=== PATIENT | male | born 1970 | race African-American/Black ===

== ENCOUNTER 2024-09-15 19:20 | Emergency (ER) | payer MEDICAID ==
[~2024-09-15] VITALS: Ht 175.3 cm; Wt 77.0 kg
[~2024-09-15 19:20] MED LIST: ALBU6.7H15 INH; AZIT250T12 MT; P50 MT
[2024-09-15 19:30] VITALS: O2SAT 100
[2024-09-15 20:10] VITALS: TEMP 36.8
[2024-09-15] MEDS ORDERED: LIDOCAINE HCL/EPINEPHRINE 1%-EPI 1:100,000 10ML VIAL INFIL ONE (22:30)
[2024-09-15] MEDS: LIDOCAINE HCL/EPINEPHRINE 1%-EPI 1:100,000 20ML VIAL INFIL SCH (22:30)
[2024-09-15] MEDS: TETANUS, DIPHTHERIA, PERTUSSIS VAC/PF 0.5ML (>10YR OLD) IM ONE (22:39)
[2024-09-15 23:07] LABS: BASOPHILS % 0.5 % (0.0-2.0); EOSINOPHILS % 2.4 % (0.0-5.0); HEMATOCRIT. 34.2 % (42.0-52.0); HEMOGLOBIN. 11.4 g/dL (14.0-18.0); MEAN CORPUSCULAR HEMOGLOBIN 30.1 pg (28.0-32.0); MEAN CORPUSCULAR HGB CONC 33.2 g/dL (31.0-37.0); MEAN CORPUSCULAR VOLUME 90.7 fL (80.0-94.0); MEAN PLATELET VOLUME 7.2 fl (7.4-10.4); MONOCYTES % 8.2 % (2.0-8.0); NEUTROPHILS % 60.9 % (40.0-76.0); PLATELET 239 x1000/uL (130-400); RED BLOOD CELL COUNT 3.77 mill/uL (4.7-6.1); RED CELL DISTRIBUTION WIDTH 13.7 % (11.6-14.6); WHITE BLOOD COUNT 6.3 x1000/uL (4.5-11.0)
[2024-09-15 23:16] LABS: CHLORIDE 108 mEq/L (98-107); POTASSIUM 4.1 mEq/L (3.5-5.1); SODIUM 140 mEq/L (136-145)
[2024-09-15 23:17] LABS: CALCIUM 8.9 mg/dL (8.7-10.4); CARBON DIOXIDE 29 mEq/L (21-32)
[2024-09-15 23:22] LABS: CREATININE 1.1 mg/dL (0.6-1.3); GLUCOSE 90 mg/dL (70-105); UREA NITROGEN BLOOD 6 mg/dL (9-23)
[2024-09-15 23:24] LABS: TROPONIN I HIGH SENSITIVITY < 4 ng/L (3.0-53)
[2024-09-16] MEDS ORDERED: BO1 TP (00:35)
[2024-09-16 01:28] VITALS: BP 110/68; PULSE 65; RESP 19; O2SAT 98
== END 2024-09-16 01:40 | disposition home or self-care (01) ==
LOC: ER 19:20
DX: S01.01XA Laceration without foreign body of scalp, initial encounter (principal); S09.90XA Unspecified injury of head, initial encounter; R55 Syncope and collapse; F17.200 Nicotine dependence, unspecified, uncomplicated; F12.90 Cannabis use, unspecified, uncomplicated; W45.8XXA Other foreign body or object entering through skin, initial encounter; Y93.89 Activity, other specified; Y92.89 Other specified places as the place of occurrence of the external cause; Y99.8 Other external cause status
CPT/HCPCS: 80048; 83880; 83735; 85025; 85610; 84484; 36415; 71045; 70450; 90715; 93005; 12001; 90471; 99285; J2004; Z7610 ×3

== ENCOUNTER 2024-09-23 15:04 | Emergency (ER) | payer MEDICAID ==
[~2024-09-23] VITALS: Ht 167.6 cm; Wt 74.0 kg
[~2024-09-23 15:04] MED LIST changes: +BO1 TP
[2024-09-23 15:18] VITALS: O2SAT 98
[2024-09-23 16:36] VITALS: BP 107/60; PULSE 81; RESP 14; TEMP 37.2; O2SAT 100
== END 2024-09-23 16:38 | disposition home or self-care (01) ==
LOC: ER 15:04
DX: S01.01XD Laceration without foreign body of scalp, subsequent encounter (principal); F12.90 Cannabis use, unspecified, uncomplicated; Z79.899 Other long term (current) drug therapy; X58.XXXD Exposure to other specified factors, subsequent encounter
CPT/HCPCS: 99282; Z7610 ×2

== ENCOUNTER 2025-03-21 06:44 | Inpatient (IN) | payer MEDICAID ==
[2025-03-21] VITALS (13 sets, daily range): BP systolic 110–141; BP diastolic 60–119; PULSE 85–99; RESP 16–24; TEMP 36.3–36.4; O2SAT 99–100
[~2025-03-21] VITALS: Ht 167.6 cm; Wt 70.9 kg
[2025-03-21 07:06] LABS: BASOPHILS % 0.9 % (0.0-2.0); EOSINOPHILS % 7.2 % (0.0-5.0); HEMATOCRIT. 39.5 % (42.0-52.0); HEMOGLOBIN. 12.6 g/dL (14.0-18.0); LYMPHOCYTES % 32.2 % (20.0-50.0); MEAN PLATELET VOLUME 7.1 fl (7.4-10.4); MONOCYTES % 5.7 % (2.0-8.0); NEUTROPHILS % 54.0 % (40.0-76.0); PLATELET 350 x1000/uL (130-400); RED BLOOD CELL COUNT 4.48 mill/uL (4.7-6.1); RED CELL DISTRIBUTION WIDTH 15.1 % (11.6-14.6)
[2025-03-21] MEDS: METHYLPREDNISOLONE SOD SUCC 125MG/2ML (ACT-O-VIAL) IV ONE (07:06)
[2025-03-21] MEDS: MAGNESIUM 2 G PREMIX 50 ML IV ONE (07:06)
[2025-03-21 07:16] LABS: CREATININE 0.8 mg/dL (0.6-1.3); UREA NITROGEN BLOOD < 5 mg/dL (9-23)
[2025-03-21 07:39] LABS: TROPONIN I HIGH SENSITIVITY 1841 ng/L (3.0-53)
[2025-03-21] MEDS ORDERED: ENALAPRIL 2.5MG/2ML VIAL 2ML IV ONE (09:00)
[2025-03-21] MEDS: ENALAPRIL 1.25MG/ML VIAL 1ML IV NR (09:10)
[2025-03-21] MEDS: ENOXAPARIN 60MG/0.6ML SYR SUBCUT ONE (09:10)
[2025-03-21] MEDS ORDERED: CLONIDINE 0.1MG TABLET PO PRN (10:15)
[2025-03-21] MEDS ORDERED: METHYLPREDNISOLONE 4MG TABLET PO SCH (10:15)
[2025-03-21] MEDS ORDERED: ACETAMINOPHEN 325MG TABLET PO PRN (10:15)
[2025-03-21] MEDS ORDERED: IPRATROPIUM/ALBUTEROL 0.5-3(2.5)MG/3ML NEB HHN PRN (10:15)
[2025-03-21] MEDS ORDERED: ONDANSETRON HCL 4MG/2ML INJ IV PRN (10:15)
[2025-03-21] MEDS ORDERED: DOCUSATE SODIUM 100MG CAPSULE PO PRN (10:15)
[2025-03-21] MEDS: FERROUS SULFATE 300MG/5ML UDC PO SCH (11:38)
[2025-03-21] MEDS: PANTOPRAZOLE SODIUM 40 MG/VIAL IV SCH (11:38)
[2025-03-21 13:09] LABS: INR 1.0
[2025-03-21 13:41] LABS: HEPATITIS C AB NON REACTIVE (Neg) (Negative)
[2025-03-21] MEDS: METHYLPREDNISOLONE SOD SUCC 125MG/2ML (ACT-O-VIAL) IV SCH (13:42)
[2025-03-21] MEDS ORDERED: GUAIFENESIN 200MG/10ML SUGAR FREE UDC PO PRN (14:00)
[2025-03-21 14:08] LABS: BG BASE EXCESS -0.7 mmol/L (-2.0-3.0); BG CARBOXYHEMOGLOBIN 0.3 % (0.5-1.5); BG DEOXYHEMOGLOBIN 0.5 % (0.0-5.0); BG FRACTION INSPIRED OXYGEN 40; BG HCO3 ACT 25.2 mmol/L (21.0-28.0); BG METHEMOGLOBIN 0.0 % (0.5-1.5); BG OXYGEN SATURATION 99.5 % (94.0-98.0); BG OXYHEMOGLOBIN 99.2 % (94.0-98.0); BG PCO2 46.3 mmHg (35.0-48.0); BG PH 7.353 (7.350-7.450); BG PO2 188.4 mmHg (83.0-108.0); BG SAMPLE SITE RIGHT RADIAL; BG TOTAL HEMOGLOBIN 12.7 g/dL (13.5-17.5); BG VENT MODE MASK - BIPAP; BG VENT RATE 18.0 set
[2025-03-21 14:23] LABS: TROPONIN I HIGH SENSITIVITY 2251 ng/L (3.0-53)
[2025-03-21] MEDS: BUDESONIDE 0.5MG/2ML NEB HHN SCH (14:28)
[2025-03-21] MEDS: IPRATROPIUM/ALBUTEROL 0.5-3(2.5)MG/3ML NEB HHN SCH (14:28)
[2025-03-21] MEDS: ASPIRIN 81MG TABLET PO SCH (15:29)
[2025-03-21] MEDS ORDERED: AZITHROMYCIN 500MG/250ML 250 ML IV SCH (17:00)
[2025-03-21] MEDS ORDERED: DOXYCYCLINE HYCLATE 100 MG/VIAL IV ONE (18:30)
[2025-03-21] MEDS: ENOXAPARIN 80MG/0.8ML SYR SUBCUT SCH (18:41)
[2025-03-21 18:42] LABS: FOLIC ACID (FOLATE) SERUM 11.32 ng/mL (>5.38)
[2025-03-21 18:43] LABS: VITAMIN B12 SERUM 512 pg/mL (211-911)
[2025-03-21 18:48] LABS: TROPONIN I HIGH SENSITIVITY 959 ng/L (3.0-53)
[2025-03-21] MEDS: DOXYCYCLINE 100MG/100ML 100 ML IV SCH (20:25)
[2025-03-22] VITALS (15 sets, daily range): BP systolic 65–131; BP diastolic 37–96; PULSE 73–99; RESP 12–23; TEMP 36.2–36.8; O2SAT 96–100
[2025-03-22 00:57] LABS: TROPONIN I HIGH SENSITIVITY 583 ng/L (3.0-53)
[2025-03-22 03:32] LABS: CLARITY URINE CLEAR (CLEAR); COLOR URINE YELLOW (YELLOW); GLUCOSE URINE NEGATIVE (NEGATIVE); KETONES URINE NEGATIVE (NEGATIVE); LEUKOCYTE ESTERASE URINE NEGATIVE (NEGATIVE); NITRITE URINE NEGATIVE (NEGATIVE); OCCULT BLOOD URINE NEGATIVE (NEGATIVE); PH URINE 6.5 (4.5-8.0); PROTEIN URINE NEGATIVE (NEGATIVE); SPECIFIC GRAVITY URINE 1.009 (1.005-1.030); UROBILINOGEN URINE 0.2 E.U./dL (0.2-1.0)
[2025-03-22 03:52] LABS: *AMPHETAMINES SCREEN URINE NEGATIVE (NEGATIVE)
[2025-03-22 03:53] LABS: *BARBITURATES SCREEN URINE NEGATIVE (NEGATIVE); *BENZODIAZEPINES SCREEN URINE NEGATIVE (NEGATIVE); *COCAINE SCREEN URINE NEGATIVE (NEGATIVE); CANNABINOID URINE SCREEN NEGATIVE (NEGATIVE); ECSTASY MDMA SCREEN URINE NEGATIVE (NEGATIVE); METHADONE URINE SCREEN NEGATIVE (NEGATIVE); OPIATES URINE SCREEN NEGATIVE (NEGATIVE); PHENCYCLIDINE URINE SCREEN NEGATIVE (NEGATIVE)
[2025-03-22 07:18] LABS: BASOPHILS % 0.1 % (0.0-2.0); EOSINOPHILS % 0.2 % (0.0-5.0); HEMATOCRIT. 34.9 % (42.0-52.0); HEMOGLOBIN. 11.5 g/dL (14.0-18.0); LYMPHOCYTES % 17.5 % (20.0-50.0); MEAN PLATELET VOLUME 7.6 fl (7.4-10.4); MONOCYTES % 2.8 % (2.0-8.0); NEUTROPHILS % 79.4 % (40.0-76.0); PLATELET 302 x1000/uL (130-400); RED BLOOD CELL COUNT 4.02 mill/uL (4.7-6.1); RED CELL DISTRIBUTION WIDTH 15.3 % (11.6-14.6)
[2025-03-22 07:37] LABS: CREATININE 1.0 mg/dL (0.6-1.3); TRIGLYCERIDE 56 mg/dL (0-150); UREA NITROGEN BLOOD 13 mg/dL (9-23)
[2025-03-22 07:38] LABS: LDL CHOLESTEROL 105 mg/dL (5-100)
[2025-03-22 10:04] LABS: CREATININE 1.1 mg/dL (0.6-1.3); UREA NITROGEN BLOOD 7 mg/dL (9-23)
[2025-03-22 10:08] LABS: BG BASE EXCESS 1.4 mmol/L (-2.0-3.0); BG CARBOXYHEMOGLOBIN 0.7 % (0.5-1.5); BG DEOXYHEMOGLOBIN 6.8 % (0.0-5.0); BG FRACTION INSPIRED OXYGEN 21; BG HCO3 ACT 25.5 mmol/L (21.0-28.0); BG METHEMOGLOBIN 0.1 % (0.5-1.5); BG OXYGEN SATURATION 93.1 % (94.0-98.0); BG OXYHEMOGLOBIN 92.4 % (94.0-98.0); BG PCO2 38.5 mmHg (35.0-48.0); BG PH 7.439 (7.350-7.450); BG PO2 65.1 mmHg (83.0-108.0); BG SAMPLE SITE RIGHT RADIAL; BG TOTAL HEMOGLOBIN 12.7 g/dL (13.5-17.5); BG VENT MODE ROOM AIR
[2025-03-22] MEDS: FERROUS SULFATE 325MG TABLET PO SCH (17:15)
[2025-03-22 21:25] LABS: INFLUENZA TYPE A Presumptive Negative (Pres. Neg.); INFLUENZA TYPE B Presumptive Negative (Pres. Neg.)
[2025-03-22 21:26] LABS: RESPIRATORY SYNCYTIAL VIRUS Not Detected (Not Detectd)
[2025-03-22] MEDS: METHYLPREDNISOLONE SOD SUCC 40MG/ML (ACT-O-VIAL) IV SCH (21:57)
[2025-03-23] VITALS (7 sets, daily range): BP systolic 99–133; BP diastolic 66–95; PULSE 63–81; RESP 12–18; TEMP 36.2–36.8; O2SAT 96–98
[2025-03-23 03:46] LABS: HEPATITIS C AB NON REACTIVE (Neg) (Negative)
[2025-03-23] MEDS ORDERED: NITROGLYCERIN 50MCG/ML 10ML VIAL (CATH LAB) IV ONE (08:03)
[2025-03-23] MEDS ORDERED: NICARDIPINE 100MCG/ML 10ML VIAL (CATH LAB) IV ONE (08:03)
[2025-03-23 08:20] LABS: CREATININE 1.0 mg/dL (0.6-1.3); UREA NITROGEN BLOOD 19 mg/dL (9-23)
[2025-03-23 09:11] LABS: BASOPHILS % 0.1 % (0.0-2.0); EOSINOPHILS % 0.0 % (0.0-5.0); HEMATOCRIT. 35.7 % (42.0-52.0); HEMOGLOBIN. 11.6 g/dL (14.0-18.0); LYMPHOCYTES % 10.6 % (20.0-50.0); MEAN PLATELET VOLUME 7.9 fl (7.4-10.4); MONOCYTES % 4.0 % (2.0-8.0); NEUTROPHILS % 85.3 % (40.0-76.0); PLATELET 320 x1000/uL (130-400); RED BLOOD CELL COUNT 4.10 mill/uL (4.7-6.1); RED CELL DISTRIBUTION WIDTH 15.2 % (11.6-14.6)
[2025-03-23] MEDS: METOPROLOL TARTRATE 5MG/5ML VIAL IV PRN (10:58)
[2025-03-23] MEDS: DEXT 5%/0.45% NACL 1000ML 1,000 ML IV SCH (15:41)
[2025-03-23] MEDS ORDERED: HEPARIN 1000 UNITS/ML 10ML ONE (17:25)
[2025-03-23] MEDS ORDERED: IODIXANOL 320MG/ML 100 ML BOTTLE IV ONE (17:25)
[2025-03-23] MEDS ORDERED: MIDAZOLAM HCL 2 MG/2 ML VIAL ONE (17:25)
[2025-03-23] MEDS ORDERED: LIDOCAINE HCL 1% 20ML VIAL ONE (17:25)
[2025-03-23] MEDS ORDERED: FENTANYL CITRATE/PF 50MCG/ML 2ML VIAL ONE (17:25)
[2025-03-23] MEDS ORDERED: ATROPINE SULFATE 1MG/10ML SYR IV PRN (18:00)
[2025-03-23] MEDS: SODIUM CHLORIDE 0.45% 500 ML IV ONE (18:47)
[2025-03-23] MEDS: ATORVASTATIN CALCIUM 20MG TABLET PO SCH (21:41)
[2025-03-23 22:12] LABS: TROPONIN I HIGH SENSITIVITY 51 ng/L (3.0-53)
[2025-03-24] VITALS: BP 121/76; PULSE 65; RESP 21; TEMP 37; O2SAT 97
[2025-03-24 00:12] LABS: CREATINE KINASE MB FRACTION 2.1 ng/mL (0.5-3.6)
[2025-03-24 04:00] VITALS: BP 121/86; PULSE 54; RESP 19; TEMP 36.8; O2SAT 96
[2025-03-24 04:07] LABS: HBSAG SCREEN Negative (Negative)
[2025-03-24 06:49] LABS: CREATININE 0.9 mg/dL (0.6-1.3); TROPONIN I HIGH SENSITIVITY 50 ng/L (3.0-53)
[2025-03-24 06:50] LABS: UREA NITROGEN BLOOD 13 mg/dL (9-23)
[2025-03-24 06:52] LABS: CREATINE KINASE MB FRACTION 1.4 ng/mL (0.5-3.6)
[2025-03-24 06:59] LABS: BASOPHILS % 0.0 % (0.0-2.0); EOSINOPHILS % 0.0 % (0.0-5.0); HEMATOCRIT. 36.2 % (42.0-52.0); HEMOGLOBIN. 11.9 g/dL (14.0-18.0); LYMPHOCYTES % 21.0 % (20.0-50.0); MEAN PLATELET VOLUME 7.7 fl (7.4-10.4); MONOCYTES % 6.6 % (2.0-8.0); NEUTROPHILS % 72.4 % (40.0-76.0); PLATELET 263 x1000/uL (130-400); RED BLOOD CELL COUNT 4.14 mill/uL (4.7-6.1); RED CELL DISTRIBUTION WIDTH 15.0 % (11.6-14.6)
[2025-03-24 08:00] VITALS: BP 121/88; PULSE 56; RESP 14; TEMP 36.6; O2SAT 98
[2025-03-24] MEDS: METHYLPREDNISOLONE SOD SUCC 40MG/ML (ACT-O-VIAL) IV SCH (11:02)
[2025-03-24 12:00] VITALS: BP 122/101; PULSE 78; RESP 12; TEMP 36.6; O2SAT 98
[2025-03-24] MEDS: LOSARTAN 25 MG TABLET PO SCH (13:13)
[2025-03-24 16:00] VITALS: BP 118/82; PULSE 74; RESP 16; TEMP 36.6; O2SAT 98
[2025-03-24] MEDS ORDERED: LOSA25TA26 PO (17:18)
[2025-03-24] MEDS ORDERED: ATOR20TA PO (17:18)
[2025-03-24] MEDS ORDERED: ALBU10.7 INH (17:18)
[2025-03-24] MEDS ORDERED: FERR-63 PO (17:18)
[2025-03-24] MEDS ORDERED: METH4TAB95 MT (17:19)
[2025-03-24 17:50] VITALS: BP 118/82; PULSE 73; RESP 13; TEMP 97.9
[2025-03-26] MEDS ORDERED: ALBU18HF2 IH (09:43)
== END 2025-03-24 18:19 | disposition home or self-care (01) | DRG 192 ==
LOC: ER 06:57 → 5EST 08:20 → EDBEDREQTM 08:25 → EDBEDREQ 08:25 → ENRESERV 09:01 → 7WST 03-23 09:30 → 3WST 03-23 18:23
PROVIDERS: ADMIT Internal Medicine; ATTEND Internal Medicine
PROC: 5A09357 Assistance with Respiratory Ventilation, Less than 24 Consecutive Hours, Continuous Positive Airway Pressure (ICD-10-PCS; principal; 2025-03-21)
PROC: 4A023N7 Measurement of Cardiac Sampling and Pressure, Left Heart, Percutaneous Approach (ICD-10-PCS; 2025-03-23)
PROC: B211YZZ Fluoroscopy of Multiple Coronary Arteries using Other Contrast (ICD-10-PCS; 2025-03-23)
PROC: B215YZZ Fluoroscopy of Left Heart using Other Contrast (ICD-10-PCS; 2025-03-23)
DX: I16.1 Hypertensive emergency (principal); J96.01 Acute respiratory failure with hypoxia; E87.20 Acidosis, unspecified; J45.901 Unspecified asthma with (acute) exacerbation; I21.A1 Myocardial infarction type 2; R65.10 Systemic inflammatory response syndrome (SIRS) of non-infectious origin without acute organ dysfunction; D64.9 Anemia, unspecified; I10 Essential (primary) hypertension; J44.9 Chronic obstructive pulmonary disease, unspecified; J06.9 Acute upper respiratory infection, unspecified; R73.03 Prediabetes; E61.1 Iron deficiency; I42.9 Cardiomyopathy, unspecified; Z87.891 Personal history of nicotine dependence; Z79.899 Other long term (current) drug therapy; Z87.09 Personal history of other diseases of the respiratory system
CPT/HCPCS: 36415; 36600; 71045; 80048; 80061; 80305; 81003; 82375; 82550; 82553; 82607; 82728; 82746; 82805; 83036; 83540; 83550; 83605; 83735; 83880; 84145; 84443; 84484; 85025; 85044; 86705; 86706; 87070; 87340; 87420; 87804; 93005; 93306; 93458; 93970; 94070; 94640; 94660; 94664; 96365; 96375; 98960; 99291; A4606; A4615; C1769; C1887; C1893; J1644; J1650; J2003; J2250; J2470; J2919; J3010; J3475; J3490; J7626; Q9967